=== PATIENT | female | born 1960 | race Caucasian/White ===

== ENCOUNTER 2019-04-01 15:40 | Outpatient (REF) | payer MEDICAID, SELFPAY ==
--- NOTE | 2019-04-01 14:15 | ENDOMET_PTH ---
PATIENT: Marcela Blair LOC: [facility] U#:[id number] AGE/SX: 59/F ROOM: RE04/01/[address]: Michelle Mike NP : 1960 BED: DIS: 04/01/2019 SPEC #: [id number] RECD: 04/01/19 17:57 STATUS: JOHN REQ #: [id number] ANTHONY: 04/01/19 14:[address]: Cee LYLE,Michelle DEPT: Surgical Specimen RECD BY: Jenelle Szymanski Tissues: 1 - ENDOMETRIUM BX/CHRISTEN Procedures: GROSS AND MICRO LEVEL 4 Comments: [id number]
== END 2019-04-01 16:00 ==
LOC: LBN 15:40
PROVIDERS: Visit Provider Nurse Practitioner Women's Health
DX: N85.01 Benign endometrial hyperplasia (principal); N93.8 Other specified abnormal uterine and vaginal bleeding; Z79.3 Long term (current) use of hormonal contraceptives
CPT/HCPCS: 88305